=== PATIENT | female | born 1975 | race African-American/Black ===

== ENCOUNTER 2025-03-20 21:30 | Emergency (ER) | payer BC, SELFPAY ==
[2025-03-20 21:32] VITALS: BMI 31.1
[2025-03-20 21:59] VITALS: BP 168/89; PULSE 76; RESP 18; TEMP 37.1; O2SAT 99
--- NOTE | 2025-03-20 22:52 | EDNOTE_ITS ---
<Statement entered by Mary Reyes MD - 03/22/25 18:57> As co-signing physician, I was present and available for consult prn. I concur with the plan and care as documented by the midlevel provider. ED Recheck Abnl Lab Rx-RME/HPI General Chief Complaint: General Adult/Misc Complain Stated Complaint: HIGH BLOOD PRESSURE Time Seen by Provider: 03/20/25 21:51 Arrival date/time: 03/20/25 21:30 49F with history of ICP (many years ago and w/ no official cause; not on meds anymore) presents to ED with elevated BP reading at home. Patient was given BP cuff by PCP and told to monitor BPs. Patient has no symptoms/complaints. Limitations: no limitations Related Data Allergies Allergy/AdvReac Type Severity Reaction Status Date / Time iron Allergy Severe THROAT Verified 03/20/25 21:37 CLOSES MULTIVITAMIN Allergy Severe THROAT Uncoded 03/20/25 21:37 SWELLING Review of Systems Review of Systems Systems Reviewed: All systems reviewed, normal except as documented Constitutional Constitutional: Reports system reviewed and no additional complaints, except as documented, Denies fever(s) and Denies headache(s) ENT Ears, Nose, Mouth, and Throat: Denies disequilibrium and Denies headache(s) Cardiovascular Cardiovascular: Reports system reviewed and no additional complaints, except as documented, Denies chest pain and Denies dyspnea Respiratory Respiratory: Reports system reviewed and no additional complaints, except as documented, Denies cough and Denies dyspnea Gastrointestinal Gastrointestinal: Reports system reviewed and no additional complaints, except as documented, Denies abdominal pain, Denies nausea and Denies vomiting Neurologic Neurologic: Reports system reviewed and no additional complaints, except as documented, Denies confusion, Denies disequilibrium and Denies headache(s) Psychiatric Psychiatric: Denies confusion Past Medical History Social History SMOKING STATUS: Never smoker ED Exam General Limitations: Present no limitations General appearance: Present alert and in no apparent distress Head Head exam: Present atraumatic Eye Eye exam: Present normal appearance, PERRL and EOMI ENT ENT exam: Present normal exam, normal oropharynx and mucous membranes moist Neck Neck exam: Present normal inspection, full ROM and trachea midline Chest Chest inspection: Present normal inspection and symmetric chest wall rise Respiratory Respiratory exam: Present normal lung sounds bilaterally Cardiovascular Cardiovascular exam: Present regular rate, normal rhythm and normal heart sounds Abdominal Exam Abdominal exam: Present soft and normal bowel sounds Extremities Exam Extremities exam: Present normal inspection and full ROM Back Exam Back exam: Present normal inspection and full ROM Neurological Exam Neurological exam: Present alert, oriented X3 and CN II-XII intact Psychiatric Psychiatric exam: Present normal affect and normal mood Skin Skin exam: Present warm, dry, intact and normal color Course Quality Measures none Vital Signs Vital signs: Vital Signs Temperature 98.8 F 03/20/25 21:59 Pulse Rate 76 03/20/25 21:59 Respiratory Rate 18 03/20/25 21:59 Blood Pressure 168/89 H 03/20/25 21:59 Pulse Oximetry (%) 99 03/20/25 21:59 Oxygen Delivery Method Room Air 03/20/25 21:59 O2 at 99% on RA and WNLs Recheck / Abnormal Lab / Rx MDM Narrative MDM Narrative:: 49F with history of ICP (many years ago and w/ no official cause; not on meds anymore) presents to ED with elevated BP reading at home. Patient was given BP cuff by PCP and told to monitor BPs. Patient has no symptoms/complaints. Physical exam reveals normal pupil response and EOM. Speech normal. Gait normal. Normal WOB. Clear lungs. RRR. Patient is afebrile, calm, and alert. BP in 160s systolic here. Mopper given. Patient data External records reviewed:: None Clinical information provided by:: patient Social determinants that could affect healthcare access:: none Patient has the following chronic illnesses:: ICP How is presenting disease/condition affected by chronic disease/condition?: uneffected by Evaluation data The following diagnostics were reviewed and interpreted by me:: other (specify) (none) Lab and/or radiology exams considered but not ordered:: not ordered Interpretation Summary: n/a Medications / Prescriptions Medications or Prescriptions considered but not ordered:: not ordered Medication administrations:: n/a Consultations Consultation(s) initiated? (list below): No Diagnosis Recheck Differential Diagnosis: encounter for medication refill, encounter for wound recheck, encounter for recheck of burn, encounter for removal of sutures, warfarin-induced coagulopathy and other (elevated BP w/o diagnosis of HTN) Most likely diagnosis given after review of the tests above:: elevated BP w/o diagnosis of HTN Admission Indicated Admission indicated?: not indicated Admission Request Was there a request for admission?: No Disposition Plan Disposition Plan: Discharge Discharge Attestation Discharge Attestation: The patient and all family members were given an opportunity to ask questions and understood the discharge instructions. Discharge instructions specifically effects, indications for sooner follow up or return to the emergency department, and the expected course of current diagnosis. Patient condition: Stable Discharge Plan Plan Patient Disposition: HOME (Self Care) Discharge Disposition comment: Stable Prescriptions/Referrals Referrals: No Primary/Family,Physician [Primary Care Provider] - In 1 week Problem List Clinical Impression: Elevated blood pressure reading without diagnosis of hypertension Patient/Caregiver Discharge Instructions Education Materials: Checking Your Own Blood Pressure, Controlling High Blood Pressure Additional Instructions: Please follow-up with PCP within 24-48 hours and return immediately if symptoms worsen. Follow-up with PCP for official HTN diagnosis and BP control. Print Language: Slovenian Stand Alone Forms: Patient Portal Info Letter KESHIA/LELAND Supervising Physician KESHIA/LELAND Supervising Physician: Dr. Reyes
== END 2025-03-20 22:31 | disposition home or self-care (01) ==
PROVIDERS: Emergency Provider Emergency Medicine
DX: R03.0 Elevated blood-pressure reading, without diagnosis of hypertension (principal)
CPT/HCPCS: 99281